=== PATIENT | male | born 1975 | race Caucasian/White ===

== ENCOUNTER 2020-01-07 13:24 | Emergency (ER) | payer OTHER, SELFPAY ==
[2020-01-07 13:30] VITALS: BP 149/87; PULSE 91; RESP 18; TEMP 36.4; O2SAT 100; BMI 24.4
[2020-01-07 14:27] VITALS: BP 149/87; PULSE 91; RESP 18; TEMP 36.4; O2SAT 100; BMI 24.3
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
[2020-01-07 15:37] VITALS: BP 149/87; PULSE 91; RESP 18; TEMP 36.4; O2SAT 100
== END 2020-01-07 15:45 | disposition home or self-care (01) ==
LOC: ER 13:36 → UTC 13:38
PROVIDERS: Emergency Provider Emergency Medicine; PCP Physician Assistant
DX: S97.81XA Crushing injury of right foot, initial encounter (principal); V86.55XA Driver of 3- or 4- wheeled all-terrain vehicle (ATV) injured in nontraffic accident, initial encounter; Y92.89 Other specified places as the place of occurrence of the external cause; F17.210 Nicotine dependence, cigarettes, uncomplicated
CPT/HCPCS: 29515; 73630; 99203

== ENCOUNTER 2023-07-22 09:56 | Outpatient (CLI) | payer OTHER, SELFPAY ==
--- NOTE | 2023-07-22 10:08 | CT_ITS ---
FINAL REPORT CLINICAL HISTORY: POOR SHORT TERM MEMORY COMPARISON: None FINDINGS: Axial images of the head were obtained without contrast. Coronal and sagittal reformatted images were also obtained.This study was performed with techniques to keep radiation doses as low as reasonably achievable (ALARA). Individualized dose reduction techniques using automated exposure control or adjustment of mA and/or kV according to the patient's size were employed. There is no evidence of intracranial hemorrhage or mass. The ventricular size is within normal limits. There is no evidence of shift of the midline structures. No abnormal extra axial fluid collection is identified. No skull abnormality is seen on the bone window images. IMPRESSION: No acute intracranial abnormality. Reviewed, Interpreted and Dictated by Bryan Pyle III, MD Transcribed by Kylie Ugarte Authenticated and [facility]
== END 2023-07-22 23:59 | disposition home or self-care (01) ==
LOC: RAD 09:58
PROVIDERS: PCP Nurse Practitioner Family; Visit Provider Nurse Practitioner Family
DX: R41.3 Other amnesia (principal)
CPT/HCPCS: 70450